=== PATIENT | male | born 2005 | race Two or more races ===

== ENCOUNTER 2025-03-24 18:27 | Emergency (ER) | payer OTHER ==
[~2025-03-24] VITALS: Ht 193 cm; Wt 90.7 kg
[2025-03-24 21:52] VITALS: BP 112/69; TEMP 99.2; O2SAT 98
== END 2025-03-24 21:54 | disposition home or self-care (01) ==
LOC: M ED 18:27
DX: H61.23 Impacted cerumen, bilateral (principal)

== ENCOUNTER 2025-05-26 02:31 | Inpatient (IN) | payer OTHER ==
[~2025-05-26] VITALS: Ht 195.6 cm; Wt 92.3 kg
[2025-05-26 04:31] LABS: PLATELET COUNT, AUTOMATED 307 10^3/uL (150-450)
[2025-05-26 04:57] LABS: ETHYL ALCOHOL (ETHANOL) < 0.003 % (0.000-0.010)
[2025-05-26 04:58] LABS: ALT/SGPT 25 U/L (7.0-40); AST/SGOT 31 U/L (<34); CALCIUM LEVEL 8.6 MG/DL (8.5-10.1); CARBON DIOXIDE LEVEL 27 MMOL/L (20-31); CHLORIDE LEVEL 105 MMOL/L (98-107); CREATININE FOR GFR 0.91 MG/DL (0.70-1.30); GLOMERULAR FILTRATION RATE > 90.0 (>60); POTASSIUM SERUM 3.8 MMOL/L (3.5-5.1); SALICYLATE LEVEL < 3.0 MG/DL (<30); SODIUM LEVEL 139 MMOL/L (136-145)
[2025-05-26] MEDS ORDERED: HOME MED LIST COMPLETE! XX SCH (08:00)
[2025-05-26 10:11] LABS: AMPHETAMINES LEVEL URINE NEGATIVE (NEGATIVE); BARBITURATES URINE NEGATIVE (NEGATIVE); BENZODIAZEPINES URINE NEGATIVE (NEGATIVE); COCAINE METABOLITE URINE NEGATIVE (NEGATIVE)
[2025-05-26 10:12] LABS: CANNABINOIDS URINE NEGATIVE (NEGATIVE); METHADONE URINE NEGATIVE (NEGATIVE); OPIATES URINE NEGATIVE (NEGATIVE); PHENCYCLIDINE URINE NEGATIVE (NEGATIVE)
[2025-05-26] MEDS ORDERED: MAALOX 30 ML SUSP *UDC PO PRN (11:10)
[2025-05-26] MEDS ORDERED: MOM 30 ML SUSPENSION UDC PO PRN (11:10)
[2025-05-26] MEDS ORDERED: ACETAMINOPHEN 325 MG TAB PO PRN (11:10)
[2025-05-26] MEDS ORDERED: traZODone 50 MG TAB PO PRN (11:10)
[2025-05-26] MEDS ORDERED: IBUPROFEN 400 MG TAB PO PRN (11:10)
[2025-05-26 12:47] VITALS: BP 116/67; TEMP 98.3; O2SAT 96
[2025-05-26 15:41] VITALS: BP 112/51; TEMP 98.8; O2SAT 98
[2025-05-26] MEDS ORDERED: HALOPERIDOL 5 MG TAB PO PRN (16:25)
[2025-05-26] MEDS ORDERED: OLANZapine ORAL DISINTEGRATING TAB 5MG PO PRN (16:25)
[2025-05-26] MEDS: NICOTINE 21 MG/24 HR 1 EA TRANSDERMAL TD SCH (16:35)
[2025-05-27 15:10] VITALS: BP 149/76; TEMP 98; O2SAT 100
[2025-05-28 06:02] VITALS: BP 91/48; TEMP 98.2; O2SAT 99
[2025-05-28 08:25] VITALS: BP 112/73
[2025-05-28 14:48] VITALS: BP 127/67; TEMP 98.6; O2SAT 100
[2025-05-29 08:42] VITALS: BP 123/69; TEMP 97.9; O2SAT 100
[2025-05-29 16:02] VITALS: BP 146/69; TEMP 98; O2SAT 98
[2025-05-30 06:37] VITALS: BP 159/70; TEMP 97.6; O2SAT 98
== END 2025-05-30 11:33 | disposition home or self-care (01) | DRG 885 ==
LOC: M ED 02:31 → M ED INP 11:07 → M PSY 12:57
PROVIDERS: ADMIT General Practice; ATTEND General Practice
DX: F39 Unspecified mood [affective] disorder (principal); R45.851 Suicidal ideations; F60.2 Antisocial personality disorder; R45.850 Homicidal ideations; F17.210 Nicotine dependence, cigarettes, uncomplicated; D72.829 Elevated white blood cell count, unspecified; D64.9 Anemia, unspecified

== ENCOUNTER 2025-08-12 20:22 | Emergency (ER) | payer OTHER ==
[~2025-08-12] VITALS: Ht 195.6 cm; Wt 90.0 kg
[2025-08-12 20:23] VITALS: BP 143/84; TEMP 97.3; O2SAT 99
== END 2025-08-12 21:51 | disposition left against medical advice (07) ==
LOC: M ED 20:22
DX: Z53.21 Procedure and treatment not carried out due to patient leaving prior to being seen by health care provider (principal)